=== PATIENT | female | born 1935 | race Hispanic/Latino ===

== ENCOUNTER 2020-11-03 18:07 | Emergency (ER) | payer BC, OTHER ==
[~2020-11-03] VITALS: Ht 144.8 cm; Wt 59.4 kg
[2020-11-03] MEDS ORDERED: CLONIDINE HCL 0.2 MG TAB PO ONE (18:45)
[2020-11-03 22:06] VITALS: BP 171/80
== END 2020-11-04 01:32 | disposition home or self-care (01) ==
LOC: ER 18:41
DX: I10 Essential (primary) hypertension (principal); E11.9 Type 2 diabetes mellitus without complications; E78.5 Hyperlipidemia, unspecified; E03.9 Hypothyroidism, unspecified
CPT/HCPCS: 99283